=== PATIENT | male | born 1960 | race Caucasian/White ===

== ENCOUNTER → 2019-06-30 14:37 | Outpatient (CLI) | payer OTHER, SELFPAY ==
--- NOTE | ~2019-06-30 | US_ITS ---
EXAMINATION: US soft tissue head and neck EXAM DATE: 06/30/2019 15:08 INDICATION: Enlarged lymph nodes. Bilateral neck swelling. TECHNIQUE: Multiple grayscale and Doppler images of the soft tissue of neck symptomatic regions were obtained (by a technologist who performed the scan) and subsequently reviewed. There is no prior purvi dy for comparison. FINDINGS: 2 largest right internal jugular chain lymph nodes measuring 1.4 x 0.5 cm, and 0.8 x 0.6 cm with fatt y anais. These are within normal size limits. On the left largest lymph nodes measuring 1.8 x 0.6 x 1.5 cm, 1.4 x 1.0 x 1.8 cm, 2.7 x 0.8 x 1.9 cm, 3.3 x 1.1 x 2.1 cm. These are pathologically enlarged. Differential diagnosis includes granulomatous process, metastatic disease, lymphoma. Correlation made to a CT neck from 2007 which demonstrated pathologically enlarged right-sided lymph nodes with multiple calcifications. Biopsy was recommended at that time, please inquire about those r esults as this lymphadenopathy could be caused by the same pathology. IMPRESSION: 1. Pathologically enlarged left internal jugular chain lymph nodes. Correlate with prior histology i f available, consider neck CT and/or consults as indicated clinically. 2. Right internal jugular chain lymph node upper limits of normal in size. Reviewed, dictated and finalized at location A. [employer] OPERATOR IMPRESSION: 1. Pathologically enlarged left internal jugular chain lymph nodes. Correlate with prior histology if available, consider neck CT and/or consults as indicate d clinically. 2. Right internal jugular chain lymph node upper limits of normal in size.
== END ==
PROVIDERS: Visit Provider Nurse Practitioner
DX: R59.9 Enlarged lymph nodes, unspecified (principal)
CPT/HCPCS: 76536

== ENCOUNTER → 2019-07-13 14:40 | Outpatient (CLI) | payer OTHER, SELFPAY ==
--- NOTE | ~2019-07-13 | CT_ITS ---
EXAMINATION: CT soft tissue neck wo con EXAM DATE: 07/13/2019 14:58 INDICATION: Enlarged nodes, night sweats. History of thyroidectomy for thyroid cancer. TECHNIQUE: Spiral CT of the neck was performed without contrast. Axial, coronal and sagittal images were reviewed. The dose-length product (DLP) for this examination was 443.98 mGy-cm. The exposure was tailored according to patient size (auto mA exposure control), and iterative reconstruction (ASIR ) was used as additional dose reduction technique. Comparison is made to prior examination from . FINDINGS: There is oval mass in region of the left palatine tonsil measuring 3.9 x 2.7 cm, partially surrounding the left aspect of the hyoid bone. The mass is effacing the left piriform sinus and causi ng mass effect on the vallecula as well. There is left parapharyngeal fat stranding. Pathologically e nlarged left internal jugulodigastric lymph nodes, largest just below mandibular angle measuring 1.7 x 1.2 cm. There is a right submental lymph node measuring 1.2 x 1.0 cm. Surgical changes from thyroidectomy. Thyroidectomy bed is unremarkable. The submandibular and parot id glands are symmetric. The superior mediastinum is unremarkable. Limited evaluation of cervic al vessels on this noncontrast study. Moderate amount of left maxillary sinus mucoperiosteal thicke belinda or moderate-sized mucus retention cyst. No sinus air-fluid levels. Mastoid air cells are well ae rated. Orbits are unremarkable. Mild to moderate cervical spondylosis. IMPRESSION: Severely enlarged heterogeneous left tonsil causing mass effect on the airway in the yani pharynx. Associated left internal jugular chain and right submental lymphadenopathy. Probably metasta tic disease. ENT consult. Reviewed, dictated and finalized at location A. IMPRESSION: Severely enlarged heterogeneous left tonsil causing mass effect on the airway in the oropharynx. Associated left internal jugular chain and right submental lymphadenopathy. Probably metastatic disease. ENT consult.
== END ==
PROVIDERS: PCP Internal Medicine; Visit Provider Nurse Practitioner
DX: R59.0 Localized enlarged lymph nodes (principal)
CPT/HCPCS: 70490

== ENCOUNTER 2022-07-21 09:00 | Outpatient (NON) | payer OTHER, SELFPAY | END 2022-07-21 09:01 | disposition home or self-care (01) | PROVIDERS: PCP Internal Medicine; Visit Provider Internal Medicine Gastroenterology | DX: Z12.5 Encounter for screening for malignant neoplasm of prostate (principal) | CPT/HCPCS: 88305 ==

== ENCOUNTER 2022-07-21 09:32 | Day surgery (SDC) | payer OTHER, SELFPAY ==
[2022-07-08 09:36] VITALS: BMI 33.2
[2022-07-21 09:45] VITALS: BP 149/93; PULSE 64; RESP 20; TEMP 36.8; O2SAT 99
--- NOTE | 2022-07-21 09:57 | P.PNAN_ITS ---
Anes - Initial Pre Proc Eval Procedure: Operation Date: 07/21/22 11:00 Proposed Procedures p Screening Colonoscopy - Raul Barrera MD Date/Time: 07/21/22 09:57 Surgeon: Ralu Barrera MD Pre Op Diagnosis: History of Colon Polyps Patient Data Age: 62 Gender: M Height: 1.75 m Weight: 104.6 kg Last Vital Signs Temp 36.8 C 07/21/22 09:45 Pulse 64 07/21/22 09:45 Resp 20 07/21/22 09:45 BP 149/93 H 07/21/22 09:45 Pulse Ox 99 07/21/22 09:45 O2 Del Method Room Air 07/21/22 09:45 Allergies Allergy/AdvReac Type Severity Reaction Status Date / Time VASILIY Inhibitors AdvReac Unknown Cough Verified 07/21/22 09:47 Penicillins AdvReac Unknown Unknown Verified 07/21/22 09:47 Home Medications Medication Instructions Recorded Confirmed Type fluticasone propionate 50 1 spray intranasal DAILY 07/04/19 07/21/22 History mcg/actuation nasal spray,suspension (24 Hour Allergy Relief) amlodipine 10 mg tablet 10 mg PO DAILY #90 tabs 04/01/22 07/21/22 Rx hydrochlorothiazide 25 mg tablet 25 mg PO DAILY #90 tabs 04/01/22 07/21/22 Rx levothyroxine 137 mcg tablet 137 mcg PO DAILY #90 tabs 06/30/22 07/21/22 Rx valsartan 320 mg tablet 320 mg PO DAILY #90 tabs 06/30/22 07/21/22 Rx Patient hx anesthesia problems: none Family hx anesthesia problems: none Results Review: All pre-operative results and documents have been reviewed as part of the pre- operative evaluation. [facility] Past Medical History Medical History AOM (acute otitis media) Flu-like symptoms History of thyroid cancer MARION (obstructive sleep apnea) Surgical History Surgical History H/O thyroidectomy (~2004) Family History Family History Father Family history of elevated blood lipids Other Hypertension Social History Social History Smoking status: Never smoker Alcohol intake: never Substance use: never Substance use type: does not use Living arrangements: with family Spiritual care concerns: No Anes - Eval Final PreProcedure Day of Procedure 07/21/22 09:57 Patient weight: obese Heart: regular rate and rhythm Lungs: clear to auscultation Airway: Mallampati scale class III Neurological: alert and oriented Last oral intake: >/= 8 hours ASA classification: III Emergent: no Anesthetic plan: proceed Anesthesia type and monitoring: general GIVS and standard monitoring Results Review: All pre-operative results and documents have been reviewed as part of the pre-operative evaluation. Informed Consent: The patient's anesthetic plan and its attendant risks and benefits were discussed with the patient/family/POA. Questions were solicited and answers provided to the satisfaction of the patient/family/POA.
[2022-07-21] MEDS: LACTATED RINGERS 1,000 ML 150 ML IV CONT (10:01)
--- NOTE | 2022-07-21 10:14 | PM.HPGS ---
History of Present Illness History of Present Illness Consent: Risks, benefits, and alternatives have been discussed and questions answered. Patient agrees to proceed with procedure. Chief complaint: History of Colon Polyps Narrative: Demetrio Bhatti is a 62 year old male here for screening colonoscopy, last one 10 years ago Review of Systems Constitutional: Constitutional: Denies headache(s) and Denies weakness Eyes: Eyes: Denies blurry vision ENT: Reports Normal hearing present, Denies headache(s) and Denies neck pain Cardiovascular: Cardiovascular: Denies chest pain and Denies dyspnea Respiratory: Respiratory: Denies dyspnea Gastrointestinal: Gastrointestinal: Reports no additional gastrointestinal complaints Genitourinary: Genitourinary: Denies dysuria Musculoskeletal: Musculoskeletal: Denies neck pain Integumentary/Breasts: Skin/Breast: Denies dry skin Neurologic: Reports Normal hearing present, Denies headache(s) and Denies weakness Psychiatric: Psychiatric: Denies anxiety Endocrine: Endocrine: Denies change in body appearance Hematologic/Lymphatic: Hematologic/Lymphatic: Denies easy bleeding Allergic/Immunologic: Allergic/Immunologic: Denies urticaria PMFSH Past Medical History Medical History AOM (acute otitis media) Flu-like symptoms History of thyroid cancer MARION (obstructive sleep apnea) Surgical History Surgical History H/O thyroidectomy (~2004) Family History Family History Father Family history of elevated blood lipids Other Hypertension Social History Social History Smoking status: Never smoker Alcohol intake: never Substance use: never Substance use type: does not use Living arrangements: with family Spiritual care concerns: No Meds Home Medications and Allergies Home Medications Medication Instructions Recorded Confirmed Type fluticasone propionate 50 1 spray intranasal DAILY 07/04/19 07/21/22 History mcg/actuation nasal spray,suspension (24 Hour Allergy Relief) amlodipine 10 mg tablet 10 mg PO DAILY #90 tabs 04/01/22 07/21/22 Rx hydrochlorothiazide 25 mg tablet 25 mg PO DAILY #90 tabs 04/01/22 07/21/22 Rx levothyroxine 137 mcg tablet 137 mcg PO DAILY #90 tabs 06/30/22 07/21/22 Rx valsartan 320 mg tablet 320 mg PO DAILY #90 tabs 06/30/22 07/21/22 Rx Allergies Allergy/AdvReac Type Severity Reaction Status Date / Time VASILIY Inhibitors AdvReac Unknown Cough Verified 07/21/22 09:47 Penicillins AdvReac Unknown Unknown Verified 07/21/22 09:47 Vital Signs Vital Signs - 24 hr 07/21/22 09:45 Temperature 98.2 F Pulse Rate 64 Respiratory Rate 20 Blood Pressure 149/93 H Pulse Oximetry 99 Oxygen Delivery Room Air Exam Const: General: comfortable and no acute distress HENMT: Face/Nose/Sinus: Normal nares present Eyes: General: appearance normal, both eyes and all related structures Neck: Neck: no JVD Resp: Auscultation: clear to auscultation bilaterally Cardio: Rate: regular rate Rhythm: regular rhythm GI: Inspection: non-distended GI Palp: Yes Soft to palpation Skin: General skin exam: normal color Neuro: General: gait normal Speech: normal speech Extrem: General: normal to inspection Psych: Mental Status: mental status grossly normal Assessment and Plan Assessment and plan (1) Colon cancer screening: Code(s): Z12.11 - Encounter for screening for malignant neoplasm of colon Status: Acute Assessment and Plan: colonoscopy
[2022-07-21 10:36] VITALS: BP 123/80; PULSE 54; RESP 20; O2SAT 99
[2022-07-21 10:47] VITALS: BP 111/78; PULSE 58; RESP 20; O2SAT 97
[2022-07-21 10:57] VITALS: BP 126/83; PULSE 59; RESP 20; O2SAT 96
== END 2022-07-21 11:14 | disposition home or self-care (01) ==
PROVIDERS: PCP Internal Medicine; Visit Provider Internal Medicine Gastroenterology
PROC: 0DJD8ZZ Inspection of Lower Intestinal Tract, Via Natural or Artificial Opening Endoscopic (ICD-10-PCS; CPT 45378; principal; 2022-07-21 11:00)
DX: Z12.11 Encounter for screening for malignant neoplasm of colon (principal)
CPT/HCPCS: 45380